=== PATIENT | female | born 2000 | race Caucasian/White ===

== ENCOUNTER 2022-03-18 13:42 | Outpatient (CLI) | payer BC, SELFPAY ==
[2022-03-18 19:17] LABS: Chlamydia DNA Amplified* NOT DETECTED (No Detected); GC DNA Amplified* NOT DETECTED (No Detected)
== END 2022-03-18 13:43 | disposition home or self-care (01) ==
PROVIDERS: Visit Provider Registered Nurse
DX: Z01.419 Encounter for gynecological examination (general) (routine) without abnormal findings (principal); Z11.3 Encounter for screening for infections with a predominantly sexual mode of transmission; Z12.4 Encounter for screening for malignant neoplasm of cervix; Z13.9 Encounter for screening, unspecified
CPT/HCPCS: 87491; 87591; 88174

== ENCOUNTER 2022-03-22 07:39 | Outpatient (CLI) | payer BC, SELFPAY ==
[2022-03-22 11:11] LABS: Cholesterol* 197 mg/dL (90-199)
[2022-03-22 11:12] LABS: HDL Cholesterol* 66 mg/dL (>=50); LDL Cholesterol Calculated 116 mg/dL (<100); Triglycerides* 77 mg/dL (40-149)
== END 2022-03-22 07:40 | disposition home or self-care (01) ==
LOC: NFLDREF 07:40
PROVIDERS: Visit Provider Registered Nurse
DX: Z13.6 Encounter for screening for cardiovascular disorders (principal)
CPT/HCPCS: 80061